=== PATIENT | male | born 1940 | race Caucasian/White ===

== ENCOUNTER → 2024-09-26 | Outpatient (CLI) | payer MEDICARE, SELFPAY ==
--- NOTE | 2024-09-26 15:26 | XR_ITS ---
Examination:Left hip AP, lateral, AP pelvis 3 views Technique: Hip AP lateral, AP pelvis, 3 views Exam date and time:September 26, 2024 1535 hours INDICATIONS: Postop hip replacement FINDINGS: Left hip bipolar hemiarthroplasty. Satisfactory alignment No loosening of the prosthetic components Right hip bones of the pelvis intact IMPRESSION: Left hip bipolar hemiarthroplasty with satisfactory alignment.
--- NOTE | 2024-09-26 15:26 | XR_ITS ---
Examination: Left femur 2 views Technique one AP lateral left femur 2 views Date and time: September 26, 2024 1453 hours INDICATIONS: Status post hip replacement FINDINGS: Left hip bipolar arthroplasty with satisfactory alignment No loosening of prosthetic components Femoral shaft intact IMPRESSION: Left hip bipolar hemiarthroplasty with satisfactory alignment
== END | disposition home or self-care (01) ==
PROVIDERS: Referring Provider Orthopaedic Surgery; Visit Provider Orthopaedic Surgery
DX: Z96.642 Presence of left artificial hip joint (principal); Z98.890 Other specified postprocedural states
CPT/HCPCS: 73502; 73552

== ENCOUNTER 2024-10-25 11:00 | Outpatient (RCR) | payer MEDICARE, OTHER, SELFPAY ==
--- NOTE | 2024-10-15 09:21 | PT.OIERPT ---
PT OP Initial Eval Patient Information Outpatient Physical Therapy Treatment Date: 10/15/24 Visit Reasons: LEFT HIP FX Medical Diagnosis: [id number] Treatment Dx #1: L hip weakness Treatment Dx #2: L hip pain Start of Care: 10/15/24 Date of Onset: 10/18/22 Smoking Status Smoking Status: Never smoker Initial Assessment Subjective: Pt is 83 yr old male s/p L hip FX with hemiarthroplasty in 2022 presents ambulating without device and with a limp he attributes to L LE being shorter than the R. Pt reports some pain of the lateral hip and sometimes the glute/sit bone with prolonged sitting and walking x15'. PLOF: prior to FX and sx pt was independent with functional mobility without assistive device PMH: GERD Imaging: Xrays of L hip in EMR Pt goal: less pain, less limp Objective: L hip AROM: Strength: Flexion: 90 deg 3+/5 within available ROM Abd: 30 deg 3+/5 within available ROM PROM: IR: 10 deg ER: 10 deg SLR: 35 deg Gait: drops onto the L LE with gait LLD: L LE appears to be 3/8-1/2 shorter than the R LE TTP: moderate of L lateral hip and ITB Assessment: Pt presents with decreased ROM, strength and limps with gait consistent with L LE being shorter than the R. Pt requires skilled therapy to meet goals and has fair rehab potential. Pt gave example printout of heel lift. Short Term and Intermediate Goals 1. Ind with HEP 2. Improved strength of L hip flexion and abduction to 4/5 3. Pt will ambulate x30 mins with <=3/10 hip pain 4. Decreased L lateral hip TTP from mod to min 5. 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 1. Manual therapy ? 2. Therex ? 3. Modalities as indicated, moist heat, ice, estim Frequency and Duration: 2x a week for 12 visits plus the eval Certification Dates: 10/15/24 to 01/13/25 Procedure Charges OP PT Eval Mod Complex 30 minutes: Yes
--- NOTE | 2024-10-23 13:15 | PT.ODAYNRPT ---
PT Outpatient Daily Note OP Daily Note Outpatient Physical Therapy Treatment Date: 10/23/24 Visit Reasons: LEFT HIP FX Subjective: Pt c/o L hip pain. Objective: Please see flow sheet for ther ex list. Assessment: Pt demonstrates poor activity tolerance due to pain with movements. Plan: Continue with pOC. Length of Time (minutes) of Treatment: 30 Minutes Procedure Charges Therapeutic Exercise 30 minutes: Yes
--- NOTE | 2024-10-25 12:40 | PT.ODAYNRPT ---
PT Outpatient Daily Note OP Daily Note Outpatient Physical Therapy Treatment Date: 10/25/24 Visit Reasons: LEFT HIP FX Subjective: He got a heel lift and the more even Objective: See F/S for therex Assessment: Good strength of L hip with SLR and step ups Plan: Continue per POC Length of Time (minutes) of Treatment: 30 Minutes Procedure Charges Therapeutic Exercise 30 minutes: Yes
== END 2024-11-05 23:59 | disposition home or self-care (01) ==
LOC: CPTX 11:00
PROVIDERS: PCP Orthopaedic Surgery; Referring Provider Orthopaedic Surgery; Visit Provider Orthopaedic Surgery
DX: M25.552 Pain in left hip (principal); R53.1 Weakness; S72.042D Displaced fracture of base of neck of left femur, subsequent encounter for closed fracture with routine healing; X58.XXXD Exposure to other specified factors, subsequent encounter
CPT/HCPCS: 97110; 97162

== ENCOUNTER 2024-11-22 09:30 | Outpatient (RCR) | payer MEDICARE, OTHER, SELFPAY ==
--- NOTE | 2024-11-06 10:37 | PT.ODAYNRPT ---
PT Outpatient Daily Note OP Daily Note Outpatient Physical Therapy Treatment Date: 11/06/24 Visit Reasons: Left leg pain Subjective: Pt reports L hip is doing better but his leg length discrepancy is really causing other issues such as back pain. Objective: Please see flow sheet for ther ex list. Assessment: Focus on restoring strength and isolating L LE to improve quad function and glute strength. Plan: Continue with pOC. Length of Time (minutes) of Treatment: 30 Minutes Procedure Charges Therapeutic Exercise 30 minutes: Yes
--- NOTE | 2024-11-08 09:48 | PT.ODAYNRPT ---
PT Outpatient Daily Note OP Daily Note Outpatient Physical Therapy Treatment Date: 11/08/24 Visit Reasons: Left leg pain Subjective: He got a heel lift and it feels more even but still limps and the foot turns in. Objective: See F/S for therex Assessment: Pt ambulates with L foot intoeing. If he turns the foot out while ambulating the knee hurts Plan: Continue per POC Length of Time (minutes) of Treatment: 30 Minutes Procedure Charges Therapeutic Exercise 30 minutes: Yes
--- NOTE | 2024-11-15 13:41 | PT.ODS1RPT ---
PT OP Progress/Discharge Note Date of Service: 11/15/24 Progress Note/DC Note Progress Note/Discharge Note: Progress Note Patient Information Visit Reasons: Left leg pain Service Continue Service or Discharge: Continue Service Status Subjective: He got a heel lift and it feels more even but still limps and the foot turns inward. Pain with hip fall outs. Objective: See F/S for therex L hip AROM: Flexion: 100 deg Abd: 30 deg with pain Gait: unsymmetrical SLR: 45 deg Assessment: Pt has attended the eval and 5 Rx sessions with continued ROM limitation into abduction and Pt ambulates with L foot intoeing. If he turns the foot out while ambulating the knee hurts. He has tightness into hip abduction which may be causing the groin pain. He has full IR ROM but ER is limited to about 30 deg. Plan: Continue per POC to 12 Rx sessions Procedure Charges Therapeutic Exercise 30 minutes: Yes
--- NOTE | 2024-11-20 08:59 | PT.ODAYNRPT ---
PT Outpatient Daily Note OP Daily Note Outpatient Physical Therapy Treatment Date: 11/20/24 Visit Reasons: Left leg pain Subjective: He got a heel lift and it feels more even length as the other one but still limps and the foot turns in. Objective: See F/S for therex MT: PROM into L hip abduction with knee bent x5' Assessment: Pt ambulates with L foot intoeing which is likely related to limited hip abduction and ER. After manual therapy to stretch into abduction the intoeing improved. Plan: Continue per POC Length of Time (minutes) of Treatment: 30 Minutes Procedure Charges Therapeutic Exercise 30 minutes: Yes
--- NOTE | 2024-11-22 15:04 | PT.ODAYNRPT ---
PT Outpatient Daily Note OP Daily Note Outpatient Physical Therapy Treatment Date: 11/22/24 Visit Reasons: Left leg pain Subjective: He got a heel lift and it feels more even length as the other one but still limps and the foot turns in. Objective: See F/S for therex MT: PROM into L hip abduction with knee bent x5' Assessment: Pt ambulates with L foot intoeing which is likely related to limited hip abduction and ER. After manual therapy to stretch into abduction the intoeing improved. Plan: Continue per POC Length of Time (minutes) of Treatment: 30 Minutes Procedure Charges Therapeutic Exercise 30 minutes: Yes
== END 2024-12-06 23:59 | disposition home or self-care (01) ==
LOC: CPTX 09:30
PROVIDERS: PCP Orthopaedic Surgery; Referring Provider Orthopaedic Surgery; Visit Provider Orthopaedic Surgery
DX: M25.552 Pain in left hip (principal); R53.1 Weakness; S72.042D Displaced fracture of base of neck of left femur, subsequent encounter for closed fracture with routine healing; X58.XXXD Exposure to other specified factors, subsequent encounter
CPT/HCPCS: 97110

== ENCOUNTER → 2024-11-27 | Outpatient (CLI) | payer MEDICARE, OTHER, SELFPAY ==
--- NOTE | 2024-11-27 | XR_ITS ---
Examination: Knee, left , 3 views Technique: Knee AP, lateral, oblique 3 views Date and time of exam: November 27, 2024 1146 hours INDICATIONS: Left knee pain beginning 2 weeks ago. 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
--- NOTE | 2024-11-27 | XR_ITS ---
Examination:Left hip AP, lateral, AP pelvis 3 views Technique: Hip AP lateral, AP pelvis, 3 views Exam date and time:November 27, 2024 1146 hours INDICATIONS: Left hip replacement 2022, onset left hip pain beginning 2 weeks ago. BI-RADS: Left hip bipolar hemiarthroplasty. Satisfactory alignment. No fracture. No loosening of the prosthetic components. Right hip bones of the pelvis intact IMPRESSION: Left hip hemiarthroplasty with satisfactory alignment.
--- NOTE | 2024-11-27 | XR_ITS ---
Examination: Bilateral AP knees single view TECHNIQUE: AP standing bilateral knees single view Date and time: November 27, 2024 1151 hours INDICATIONS: Left knee pain beginning 2 weeks ago. FINDINGS: Moderate osteopenia Moderate narrowing medial joint spaces No fracture or dislocation No cortical bone destruction IMPRESSION: Moderate narrowing medial joint spaces
== END | disposition home or self-care (01) ==
LOC: CDIM 11:11
PROVIDERS: PCP Orthopaedic Surgery; Referring Provider Orthopaedic Surgery; Visit Provider Orthopaedic Surgery
DX: M17.12 Unilateral primary osteoarthritis, left knee (principal); Z96.642 Presence of left artificial hip joint
CPT/HCPCS: 73502; 73562; 73565